=== PATIENT | male | born 1970 | race African-American/Black ===

== ENCOUNTER 2022-09-09 00:03 | Inpatient (IN) | payer MEDICARE, MEDICAID ==
[~2022-09-09] VITALS: Ht 172.7 cm; Wt 90.3 kg
[~2022-09-09 00:03] MED LIST: AMLO-257 PO; BENZ1TAB84 PO; CLON0.2T2 PO; HALO10TA21 PO; HYDR25TA2 PO; LISI-894 PO; LURA40TA2 PO
[2022-09-09 00:56] LABS: BASOPHILS % (AUTO) 0.8 % (0.0-2.0); EOSINOPHILS % (AUTO) 0.6 % (1.0-6.0); HEMATOCRIT 39.9 % (41-53); HEMOGLOBIN 12.9 g/dL (13.5-17.5); LYMPHOCYTES # (AUTO) 1.4 K/uL (1.0-4.8); LYMPHOCYTES % (AUTO) 17.6 % (22.0-44.0); MEAN CORPUSCULAR HEMOGLOBIN 27.2 pg (26.0-34.0); MEAN CORPUSCULAR HGB CONC 32.4 G/dL (31.0-37.0); MEAN CORPUSCULAR VOLUME 84 fL (80-100); MONOCYTES # (AUTO) 0.7 K/uL (0.1-1.0); MONOCYTES % (AUTO) 7.9 % (2.0-9.0); NEUTROPHILS % (AUTO) 73.1 % (40.0-70.0); PLATELET COUNT (AUTO) 247 K/uL (150-450); RED BLOOD CELL COUNT(AUTO) 4.75 MIL/uL (4.50-5.90); RED CELL DISTRIBUTION WIDTH 15.5 % (11.5-14.5)
[2022-09-09 01:14] LABS: ANION GAP 8 mmol/L (8-16); CALCIUM, TOTAL 9.5 mg/dL (8.8-10.5); CARBON DIOXIDE 30 mmol/L (22-29); CHLORIDE 104 mmol/L (98-107); CREATININE 1.14 mg/dL (0.60-1.30); GLOMERULAR FILTR. RATE CALC > 60 mL/min (>60); GLUCOSE,RANDOM 111 mg/dL (70-110); POTASSIUM 4.4 mmol/L (3.5-5.1); SODIUM SERUM 142 mmol/L (136-145)
[2022-09-09 01:16] LABS: AMPHET/METH SCREEN,URINE NEGATIVE (NEGATIVE); BARBITURATE SCREEN, URINE NEGATIVE (NEGATIVE); BENZODIAZEPINES SCREEN,URINE NEGATIVE (NEGATIVE); CANNABINOID SCREEN,URINE POSITIVE (NEGATIVE); COCAINE SCREEN,URINE NEGATIVE (NEGATIVE); METHADONE SCREEN, URINE NEGATIVE (NEGATIVE); OPIATE SCREEN,URINE NEGATIVE (NEGATIVE); PHENCYCLIDINE SCREEN,URINE NEGATIVE (NEGATIVE)
[2022-09-09 01:20] LABS: ALANINE AMINOTRANSFERASE 35 U/L (12-78); ALKALINE PHOSPHATASE 80 U/L (46-116); ASPARTATE AMINOTRANSFERASE 48 U/L (15-37); BILIRUBIN,TOTAL 0.4 mg/dL (0.1-1.0); TOTAL PROTEIN, SERUM 8.3 g/dL (6.4-8.2)
[2022-09-09 01:53] LABS: APPEARANCE,URINE CLEAR (CLEAR); BILIRUBIN,URINE NEGATIVE (NEGATIVE); GLUCOSE, URINE (UA) NEGATIVE (NEGATIVE); KETONES,URINE TRACE mg/dL (NEGATIVE); LEUKOCYTE ESTERASE ,URINE NEGATIVE (NEGATIVE); NITRATE,URINE NEGATIVE (NEGATIVE); OCCULT BLOOD,URINE NEGATIVE (NEGATIVE); PH,URINE 5.5 (5.0-8.0); PROTEIN,URINE 30-70 mg/dL (NEGATIVE); SPECIFIC GRAVITIY, URINE 1.041 (1.003-1.030)
[2022-09-09 02:24] LABS: COVID AG,FIA SOURCE NASOPHARYNGEAL
[2022-09-09] MEDS ORDERED: ALBUTEROL SULFATE HFA 90 MCG/PUFF 8 GM INHALER IH PRN (02:45)
[2022-09-09] MEDS ORDERED: DiphenhydrAMINE HCL 50 MG/ML VIAL IM ONE (04:30)
[2022-09-09] MEDS ORDERED: HALOPERIDOL LACTATE 5 MG/ML VIAL IM ONE (04:30)
[2022-09-09] MEDS ORDERED: LORazepam 2 MG/ML VIAL IM ONE (04:30)
[2022-09-09 12:40] VITALS: BP 102/59; PULSE 57; RESP 17; TEMP 97.9; O2SAT 99
[2022-09-09 13:00] VITALS: TEMP 97.9
[2022-09-09] MEDS: LORazepam 2 MG TABLET PO PRN (16:37)
[2022-09-09] MEDS: HALOPERIDOL 5 MG TABLET PO PRN (16:37)
[2022-09-09 20:42] VITALS: BP 150/78; PULSE 77; RESP 19; TEMP 98.7; O2SAT 97
[2022-09-10 08:15] VITALS: BP 130/94; PULSE 84; RESP 18; TEMP 98.4; O2SAT 100
[2022-09-10] MEDS ORDERED: CloNIDine HCL 0.1 MG TABLET PO PRN (10:45)
[2022-09-10] MEDS ORDERED: MAG HYDROX/AL HYDROX/SIMETH ES 30 ML SUSPENSION UDCUP PO PRN (10:45)
[2022-09-10] MEDS ORDERED: ACETAMINOPHEN 325 MG TABLET PO PRN (10:45)
[2022-09-10] MEDS ORDERED: LOPERAMIDE HCL 2 MG CAPSULE PO PRN (10:45)
[2022-09-10] MEDS ORDERED: GuaiFENesin/D-METHORPHAN [SUGAR-FREE] 200-20MG/10 ML SYRUP UDCUP PO PRN (10:45)
[2022-09-10] MEDS ORDERED: DOCUSATE SODIUM 100 MG CAPSULE PO PRN (10:45)
[2022-09-10] MEDS ORDERED: ONDANSETRON HCL 4 MG TABLET PO PRN (10:45)
[2022-09-10] MEDS ORDERED: PETROLATUM,WHITE 28 GM JELLY TP PRN (10:45)
[2022-09-10] MEDS ORDERED: NICOTINE 14 MG/24 HOUR PATCH TD PRN (10:45)
[2022-09-10] MEDS ORDERED: MAGNESIUM HYDROXIDE SUSPENSION 30 ML UDCUP PO PRN (10:45)
[2022-09-10] MEDS: DIVALPROEX SODIUM 500 MG ER TABLET PO SCH (13:51)
[2022-09-10] MEDS: DULoxetine HCL 20 MG CAPSULE PO SCH (13:51)
[2022-09-10] MEDS: OLANZapine 10 MG TABLET PO SCH ×2 (13:51→20:47)
[2022-09-10 20:08] VITALS: BP 160/82; PULSE 64; RESP 20; TEMP 98.3; O2SAT 98
[2022-09-10] MEDS: LORazepam 2 MG TABLET PO PRN (20:47)
[2022-09-10] MEDS: ZOLPIDEM TARTRATE 10 MG TABLET PO PRN (20:47)
[2022-09-11 08:17] VITALS: RESP 18
[2022-09-11] MEDS: DULoxetine HCL 20 MG CAPSULE PO SCH (08:23)
[2022-09-11] MEDS: OLANZapine 10 MG TABLET PO SCH ×2 (08:24→20:34)
[2022-09-11] MEDS: DIVALPROEX SODIUM 500 MG ER TABLET PO SCH (08:24)
[2022-09-11] MEDS: LORazepam 2 MG TABLET PO PRN ×3 (08:24→17:17)
[2022-09-11] MEDS: HALOPERIDOL 5 MG TABLET PO PRN ×2 (12:23→17:17)
[2022-09-11 17:46] VITALS: RESP 18
[2022-09-11] MEDS: IBUPROFEN 400 MG TABLET PO PRN (17:46)
[2022-09-11 18:43] VITALS: RESP 16
[2022-09-11 20:09] VITALS: BP 160/85; PULSE 76; RESP 18; TEMP 98.1; O2SAT 97
[2022-09-11] MEDS: ZOLPIDEM TARTRATE 10 MG TABLET PO PRN (20:34)
[2022-09-12 08:03] VITALS: BP 143/83; PULSE 75; RESP 16; TEMP 97.6; O2SAT 95
[2022-09-12] MEDS: OLANZapine 10 MG TABLET PO SCH ×2 (08:42→21:07)
[2022-09-12] MEDS: DIVALPROEX SODIUM 500 MG ER TABLET PO SCH (08:42)
[2022-09-12] MEDS: DULoxetine HCL 20 MG CAPSULE PO SCH (08:43)
[2022-09-12] MEDS: LORazepam 2 MG TABLET PO PRN (08:43)
[2022-09-12 20:22] VITALS: BP 147/96; PULSE 69; RESP 18; TEMP 98; O2SAT 98
[2022-09-13] MEDS: OLANZapine 10 MG TABLET PO SCH ×2 (08:28→20:46)
[2022-09-13] MEDS: DIVALPROEX SODIUM 500 MG ER TABLET PO SCH (08:28)
[2022-09-13] MEDS: DULoxetine HCL 20 MG CAPSULE PO SCH (08:28)
[2022-09-13 08:30] VITALS: BP 116/70; PULSE 80; RESP 18; TEMP 98.2; O2SAT 98
[2022-09-13 08:35] VITALS: RESP 18
[2022-09-13] MEDS: ALBUTEROL SULFATE HFA 90 MCG/PUFF 8 GM INHALER IH PRN (08:35)
[2022-09-13] MEDS: IBUPROFEN 400 MG TABLET PO PRN (08:35)
[2022-09-13] MEDS: LORazepam 2 MG TABLET PO PRN ×2 (08:43→17:00)
[2022-09-13 09:35] VITALS: RESP 18
[2022-09-13] MEDS: NICOTINE 21 MG/24 HOUR PATCH TD SCH (18:59)
[2022-09-13 20:30] VITALS: BP 140/91; PULSE 65; RESP 20; TEMP 98.3; O2SAT 100
[2022-09-14 08:21] VITALS: BP 154/112; PULSE 83; RESP 20; TEMP 97.5; O2SAT 100
[2022-09-14] MEDS: DIVALPROEX SODIUM 500 MG ER TABLET PO SCH ×2 (08:57→16:38)
[2022-09-14] MEDS: AmLODIPine BESYLATE 5 MG TABLET PO SCH (08:57)
[2022-09-14] MEDS: LORazepam 2 MG TABLET PO PRN ×3 (08:57→20:41)
[2022-09-14] MEDS: OLANZapine 10 MG TABLET PO SCH ×2 (08:57→20:41)
[2022-09-14] MEDS: DULoxetine HCL 20 MG CAPSULE PO SCH (08:58)
[2022-09-14] MEDS: NICOTINE 21 MG/24 HOUR PATCH TD SCH (09:10)
[2022-09-14 11:15] VITALS: BP 151/103; PULSE 79; RESP 18; O2SAT 98
[2022-09-14] MEDS: CloNIDine HCL 0.1 MG TABLET PO SCH (14:33)
[2022-09-14 20:13] VITALS: BP 146/84; PULSE 92; RESP 19; TEMP 98.3; O2SAT 97
[2022-09-14] MEDS: ZOLPIDEM TARTRATE 10 MG TABLET PO PRN (20:41)
[2022-09-15 08:13] VITALS: BP 169/100; PULSE 76; RESP 18; TEMP 98.1; O2SAT 99
[2022-09-15] MEDS: DIVALPROEX SODIUM 500 MG ER TABLET PO SCH ×2 (08:15→16:10)
[2022-09-15] MEDS: CloNIDine HCL 0.1 MG TABLET PO SCH (08:15)
[2022-09-15] MEDS: DULoxetine HCL 20 MG CAPSULE PO SCH (08:15)
[2022-09-15] MEDS: AmLODIPine BESYLATE 5 MG TABLET PO SCH (08:15)
[2022-09-15] MEDS: OLANZapine 10 MG TABLET PO SCH ×2 (08:15→20:59)
[2022-09-15] MEDS: NICOTINE 21 MG/24 HOUR PATCH TD SCH (08:18)
[2022-09-15 12:30] VITALS: BP 136/90; PULSE 87; RESP 18; O2SAT 99
[2022-09-15] MEDS: IBUPROFEN 400 MG TABLET PO PRN (16:10)
[2022-09-15 16:13] VITALS: BP 130/88; PULSE 90; RESP 20; O2SAT 97
[2022-09-15] MEDS ORDERED: PEG 400/HYPROMELLOSE/GLYCERIN 15 ML OPHTHALMIC SOLUTION OU PRN (16:30)
[2022-09-15 17:10] VITALS: RESP 18
[2022-09-15] MEDS: LORazepam 2 MG TABLET PO PRN (17:29)
[2022-09-15] MEDS: HALOPERIDOL 5 MG TABLET PO PRN (17:29)
[2022-09-15 20:11] VITALS: BP 135/95; PULSE 89; RESP 20; TEMP 98.3; O2SAT 99
[2022-09-16] MEDS: DIVALPROEX SODIUM 500 MG ER TABLET PO SCH ×2 (08:25→17:07)
[2022-09-16] MEDS: DULoxetine HCL 20 MG CAPSULE PO SCH (08:25)
[2022-09-16] MEDS: OLANZapine 10 MG TABLET PO SCH ×2 (08:26→20:20)
[2022-09-16] MEDS: NICOTINE 21 MG/24 HOUR PATCH TD SCH (08:27)
[2022-09-16 08:34] VITALS: BP 136/101; PULSE 90; RESP 18; TEMP 98.8; O2SAT 99
[2022-09-16] MEDS: CloNIDine HCL 0.1 MG TABLET PO SCH (09:09)
[2022-09-16] MEDS: AmLODIPine BESYLATE 5 MG TABLET PO SCH (09:09)
[2022-09-16] MEDS: HALOPERIDOL 5 MG TABLET PO PRN (09:34)
[2022-09-16] MEDS: LORazepam 2 MG TABLET PO PRN ×2 (09:34→17:07)
[2022-09-16] MEDS: LISINOPRIL 20 MG TABLET PO SCH (10:03)
[2022-09-16 20:12] VITALS: BP 118/66; PULSE 75; RESP 20; TEMP 98.6; O2SAT 99
[2022-09-16] MEDS: ZOLPIDEM TARTRATE 10 MG TABLET PO PRN (20:27)
[2022-09-17] MEDS: DULoxetine HCL 20 MG CAPSULE PO SCH (08:15)
[2022-09-17] MEDS: OLANZapine 10 MG TABLET PO SCH ×2 (08:16→20:30)
[2022-09-17] MEDS: LISINOPRIL 20 MG TABLET PO SCH (08:16)
[2022-09-17] MEDS: CloNIDine HCL 0.1 MG TABLET PO SCH (08:16)
[2022-09-17] MEDS: DIVALPROEX SODIUM 500 MG ER TABLET PO SCH ×2 (08:16→16:22)
[2022-09-17] MEDS: AmLODIPine BESYLATE 5 MG TABLET PO SCH (08:16)
[2022-09-17] MEDS: NICOTINE 21 MG/24 HOUR PATCH TD SCH (08:17)
[2022-09-17 08:35] VITALS: BP 150/99; PULSE 81; RESP 17; TEMP 98.4; O2SAT 99
[2022-09-17] MEDS: LORazepam 2 MG TABLET PO PRN ×2 (08:42→16:22)
[2022-09-17] MEDS: HALOPERIDOL 5 MG TABLET PO PRN ×2 (08:42→16:22)
[2022-09-17] MEDS: IBUPROFEN 400 MG TABLET PO PRN (09:09)
[2022-09-17 20:14] VITALS: BP 133/84; PULSE 75; RESP 18; TEMP 98.2; O2SAT 98
[2022-09-18] MEDS: CloNIDine HCL 0.1 MG TABLET PO SCH (08:02)
[2022-09-18] MEDS: DIVALPROEX SODIUM 500 MG ER TABLET PO SCH ×2 (08:02→16:38)
[2022-09-18] MEDS: LISINOPRIL 20 MG TABLET PO SCH (08:03)
[2022-09-18] MEDS: OLANZapine 10 MG TABLET PO SCH ×2 (08:03→20:12)
[2022-09-18] MEDS: AmLODIPine BESYLATE 5 MG TABLET PO SCH (08:03)
[2022-09-18] MEDS: NICOTINE 21 MG/24 HOUR PATCH TD SCH (08:03)
[2022-09-18] MEDS: DULoxetine HCL 20 MG CAPSULE PO SCH (08:03)
[2022-09-18 08:14] VITALS: BP 144/89; PULSE 82; RESP 19; TEMP 98.5; O2SAT 96
[2022-09-18] MEDS: IBUPROFEN 400 MG TABLET PO PRN (08:17)
[2022-09-18] MEDS: LORazepam 2 MG TABLET PO PRN (16:39)
[2022-09-18 20:03] VITALS: BP 136/90; PULSE 78; RESP 18; TEMP 98.2
[2022-09-18] MEDS: ZOLPIDEM TARTRATE 10 MG TABLET PO PRN (20:12)
[2022-09-19 08:09] VITALS: BP 161/97; PULSE 67; RESP 18; TEMP 99.2; O2SAT 99
[2022-09-19] MEDS: LISINOPRIL 20 MG TABLET PO SCH (08:25)
[2022-09-19] MEDS: DULoxetine HCL 20 MG CAPSULE PO SCH (08:25)
[2022-09-19] MEDS: OLANZapine 10 MG TABLET PO SCH ×2 (08:25→20:23)
[2022-09-19] MEDS: AmLODIPine BESYLATE 5 MG TABLET PO SCH (08:25)
[2022-09-19] MEDS: DIVALPROEX SODIUM 500 MG ER TABLET PO SCH ×2 (08:25→16:46)
[2022-09-19] MEDS: CloNIDine HCL 0.1 MG TABLET PO SCH (08:25)
[2022-09-19] MEDS: NICOTINE 21 MG/24 HOUR PATCH TD SCH (08:29)
[2022-09-19] MEDS: ALBUTEROL SULFATE HFA 90 MCG/PUFF 8 GM INHALER IH PRN (08:39)
[2022-09-19 09:56] VITALS: BP 142/95; PULSE 89; RESP 18; O2SAT 96
[2022-09-19 21:35] VITALS: BP 140/86; PULSE 81; RESP 16; TEMP 99.2; O2SAT 99
[2022-09-20] MEDS: HALOPERIDOL 5 MG TABLET PO PRN (00:18)
[2022-09-20] MEDS: CloNIDine HCL 0.1 MG TABLET PO SCH (08:03)
[2022-09-20] MEDS: NICOTINE 21 MG/24 HOUR PATCH TD SCH (08:03)
[2022-09-20] MEDS: AmLODIPine BESYLATE 5 MG TABLET PO SCH (08:03)
[2022-09-20] MEDS: DULoxetine HCL 20 MG CAPSULE PO SCH (08:03)
[2022-09-20] MEDS: DIVALPROEX SODIUM 500 MG ER TABLET PO SCH (08:03)
[2022-09-20] MEDS: OLANZapine 10 MG TABLET PO SCH (08:03)
[2022-09-20] MEDS: LISINOPRIL 20 MG TABLET PO SCH (08:04)
[2022-09-20 08:07] VITALS: BP 152/80; PULSE 86; RESP 18; TEMP 98.3; O2SAT 96
[2022-09-20] MEDS ORDERED: DIVA500T69 PO (10:47)
[2022-09-20] MEDS ORDERED: OLAN10TA74 PO (10:47)
[2022-09-20] MEDS ORDERED: DULO20CA71 PO (10:47)
== END 2022-09-20 14:54 | disposition home or self-care (01) | DRG 885 ==
LOC: EMS 00:03 → B3A 09:35
PROVIDERS: ADMIT Psychiatry & Neurology Child & Adolescent Psychiatry; ATTEND Psychiatry & Neurology Child & Adolescent Psychiatry
DX: F25.0 Schizoaffective disorder, bipolar type (principal); I10 Essential (primary) hypertension; D64.9 Anemia, unspecified; F12.90 Cannabis use, unspecified, uncomplicated; G47.00 Insomnia, unspecified; Z20.822 Contact with and (suspected) exposure to COVID-19; E66.01 Morbid (severe) obesity due to excess calories; Z79.899 Other long term (current) drug therapy; Z59.00 Homelessness unspecified; Z87.891 Personal history of nicotine dependence; Z68.30 Body mass index [BMI] 30.0-30.9, adult
CPT/HCPCS: 80053; 80307; 81003; 85025; 99291; G0480; J1200; J1630; J2060; J3535